=== PATIENT | male | born 1975 | race Hispanic/Latino ===

== ENCOUNTER → 2020-07-07 | Outpatient (CLI) | payer BC | END | disposition home or self-care (01) | LOC: RAH 10:00 | PROVIDERS: ATTEND Internal Medicine Gastroenterology | DX: K76.0 Fatty (change of) liver, not elsewhere classified (principal); K31.84 Gastroparesis; R14.0 Abdominal distension (gaseous); R11.0 Nausea | CPT/HCPCS: 76700; 78264; A9541 ==

== ENCOUNTER 2021-07-31 15:58 | Emergency (ER) | payer BC ==
[~2021-07-31] VITALS: Ht 167.6 cm; Wt 99.8 kg
[2021-07-31 17:21] LABS: BASOPHILS % (AUTO) 0.4 % (0.0-5.0); EOSINOPHILS % (AUTO) 1.3 % (0.0-8.0); HEMATOCRIT 41.7 % (42-54); LYMPHOCYTES % (AUTO) 16.8 % (21.0-51.0); MEAN CORPUSCULAR HEMOGLOBIN 28.4 pg (27.0-33.0); MEAN CORPUSCULAR HGB CONC 32.4 g/dL (32.0-36.0); MEAN CORPUSCULAR VOLUME 87.8 fL (79-99); MONOCYTES % (AUTO) 3.9 % (3.0-13.0); NEUTROPHILS % (AUTO) 76.1 % (40.0-77.0); PLATELET COUNT (AUTO) 554 K/uL (130-400); RED BLOOD CELL COUNT(AUTO) 4.75 MIL/uL (4.50-6.20); RED CELL DISTRIBUTION WIDTH 13.2 % (11.0-15.5); WHITE BLOOD COUNT (AUTO) 13.6 K/uL (4.8-10.8)
[2021-07-31 17:33] LABS: CREATININE 0.9 mg/dL (0.5-1.5); POTASSIUM 4.5 mmol/L (3.5-5.1)
[2021-07-31 17:37] LABS: ALBUMIN 2.1 g/dL (3.5-5.0); BILIRUBIN,TOTAL 0.3 mg/dL (0.2-1.0); CRP QUANTITATIVE 94.9 mg/L (0.00-9.0); TOTAL PROTEIN, SERUM 7.2 g/dL (6.0-8.3)
[2021-07-31] MEDS ORDERED: 0.9%NACL 1000ML 1,000 ML IV ONE ×2 (17:45→18:00)
[2021-07-31] MEDS ORDERED: ZOSYN 3.375GM +NS 50ML IV SCH (18:00)
[2021-07-31] MEDS ORDERED: ZOSYN 3.375GM+NS 50ML 0 ML ONE (18:35)
[2021-07-31 19:04] VITALS: BP 150/71
[2021-07-31] MEDS ORDERED: ZOSYN 3.375GM+NS 50ML 50 ML ONE (19:25)
[2021-07-31] MEDS ORDERED: ZOSYN 3.375GM+NS 50ML 50 ML IV SCH (21:00)
== END 2021-07-31 20:13 | disposition home or self-care (01) ==
LOC: EDH 15:58
DX: K91.89 Other postprocedural complications and disorders of digestive system (principal); L02.211 Cutaneous abscess of abdominal wall; E11.9 Type 2 diabetes mellitus without complications; E66.9 Obesity, unspecified; E78.00 Pure hypercholesterolemia, unspecified; I10 Essential (primary) hypertension; Z90.49 Acquired absence of other specified parts of digestive tract; Y83.8 Other surgical procedures as the cause of abnormal reaction of the patient, or of later complication, without mention of misadventure at the time of the procedure; Y82.8 Other medical devices associated with adverse incidents
CPT/HCPCS: 36415; 74176; 80053; 83605; 85025; 86140; 87040 ×2; 87070; 87076; 87077 ×3; 87186 ×3; 96361; 96365; 99284; J2543; J7030